=== PATIENT | male | born 1995 | race African-American/Black ===

== ENCOUNTER 2017-02-11 14:37 | Emergency (ER) | payer OTHER ==
[2017-02-11 14:53] VITALS: BP 128/58; PULSE 88; TEMP 98.8; BMI 29.9
[2017-02-11] MEDS ORDERED: ONDANSETRON *ODT* 4 MG TABLET SL ONE (15:12)
[2017-02-11] MEDS ORDERED: KETOROLAC TROMETHAMINE 60 MG/2 ML VIAL IM ONE (15:12)
--- NOTE | 2017-02-11 15:12 | PDOC ---
History of Present Illness - General Chief Complaint: Sore Throat Stated Complaint: SORE THROAT, VOMITING, FEVER Time Seen by Provider: 02/11/17 14:59 History Source: Patient Exam Limitations: No Limitations - History of Present Illness Initial Comments: 02/11/17 15:09 21 yr male with sore throat for 3 days , fever and chills, vomiting for 1 day. pt has no medical history or allergies. Severity: mild Associated Symptoms: reports: fever/chills Past History - Past Medical History Allergies/Adverse Reactions: Allergies Allergy/AdvReac Type Severity Reaction Status Date / Time No Known Allergies Allergy Verified 02/11/17 14:48 Home Medications: Ambulatory Orders NK [No Known Home Medication] 02/11/17 Penicillin V Potassium [Pen Vee K -] 500 mg PO BID #20 tablet 02/11/17 Other medical history: denies - Surgical History Abdominal Surgery: Yes - Immunization History Immunization Up to Date: Yes - Psycho/Social/Smoking Cessation Hx Suicidal Ideation: No Smoking History: Current every day smoker Number of Cigarettes Smoked Daily: 3 Information on smoking cessation initiated: No Hx Alcohol Use: No Drug/Substance Use Hx: No Review of Systems - Review of Systems Able to Perform ROS?: Yes Is the patient limited Sami proficient: No Constitutional: Yes: Symptoms Reported, Fever HEENTM: Yes: Symptoms Reported, Throat Pain Respiratory: No: Symptoms reported Cardiac (ROS): No: Symptoms Reported ABD/GI: No: Symptoms Reported : No: Symptoms Reported Musculoskeletal: No: Symptoms Reported Integumentary: No: Symptoms Reported Neurological: No: Symptoms reported *Physical Exam - Vital Signs Last Vital Signs Temp Pulse Resp BP Pulse Ox 98.8 F 88 18 128/58 97 02/11/17 14:48 02/11/17 14:48 02/11/17 14:48 02/11/17 14:48 02/11/17 14:48 - Physical Exam General Appearance: Yes: Nourished, Appropriately Dressed HEENT: positive: EOMI, LINDA, TMs Normal, Pharyngeal Erythema, Tonsillar Erythema. negative: Tonsillar Exudate Neck: positive: Supple. negative: Lymphadenopathy (R), Lymphadenopathy (L) Respiratory/Chest: positive: Lungs Clear, Normal Breath Sounds Cardiovascular: positive: Regular Rhythm, Regular Rate Gastrointestinal/Abdominal: positive: Normal Bowel Sounds, Soft Musculoskeletal: positive: Normal Inspection Extremity: positive: Normal Capillary Refill, Normal Inspection, Normal Range of Motion Integumentary: positive: Normal Color, Dry, Warm Neurologic: positive: marketing communications assistant II-XII NML intact, Fully Oriented, Alert, Normal Mood/ Affect, Normal Response, Motor Strength /5 Medical Decision Making - Medical Decision Making 02/11/17 15:11 cc: fever, chills, sore throat for 3 days had vomiting last night after eating frankfurter. non toxic vitals stable 02/11/17 15:24 positive strep will treat with penvk for 10 days *DC/Admit/Observation/Transfer Diagnosis at time of Disposition: Strep sore throat - Discharge Dispostion Disposition: HOME Condition at time of disposition: Good - Prescriptions Prescriptions: Penicillin V Potassium [Pen Vee K -] 500 mg PO BID #20 tablet - Referrals Referrals: Filiberto Nelson MD [Staff Physician] - - Patient Instructions Additional Instructions: gargle with warm salt water 4-5 times a day take the penicillin as directed for 10 days finish all the medicine take motrin 800mg every 6hrs for pain (over the counter advil, ibuprofen or motrin) follow with the ENT if any worsening symptoms
[2017-02-11] MEDS ORDERED: KETOROLAC TROMETHAMINE 60 MG/2 ML VIAL ONE (15:15)
[2017-02-11] MEDS ORDERED: ONDANSETRON *ODT* 4 MG TABLET ONE (15:15)
== END 2017-02-11 15:50 | disposition home or self-care (01) ==
LOC: JER 14:37
DX: J02.0 Streptococcal pharyngitis (principal); B95.0 Streptococcus, group A, as the cause of diseases classified elsewhere
CPT/HCPCS: 87070; 87077; 87430; 99281-25